=== PATIENT | male | born 1955 | race Caucasian/White ===

== ENCOUNTER 2017-05-31 16:29 | Emergency (ER) | payer OTHER ==
[~2017-05-31] VITALS: Ht 195.6 cm; Wt 102.1 kg
[~2017-05-31 16:29] MED LIST: ASPIRIN EC81 MG PO; ATENOLOL25 MG PO; LOSARTAN POTASS25 MG PO; LOVASTATIN20 MG PO; NORCO 10-325 T1 EACH PO
[2017-05-31] MEDS ORDERED: TOPROL XL50 MG PO (17:08)
[2017-06-18] MEDS ORDERED: DAILY MULTIPLE1 EACH PO (13:02)
== END 2017-05-31 17:27 | disposition home or self-care (01) ==
LOC: ED 16:29
DX: H43.391 Other vitreous opacities, right eye (principal); I10 Essential (primary) hypertension; F17.200 Nicotine dependence, unspecified, uncomplicated; Z79.899 Other long term (current) drug therapy
CPT/HCPCS: 99282

== ENCOUNTER 2018-04-08 16:49 | Emergency (ER) | payer OTHER ==
[~2018-04-08] VITALS: Ht 195.6 cm; Wt 102.1 kg
[~2018-04-08 16:49] MED LIST changes: +DAILY MULTIPLE1 EACH PO; +TOPROL XL50 MG PO
--- NOTE | 2018-04-09 20:59 | EKG ---
[facility] [address] [place] [address] Signed Normal sinus rhythm Inferior infarct , age undetermined Abnormal ECG No previous ECGs available Confirmed by DANIEL CRESPO MD ([id number]) on 04/09/2018 8:59:07 PM Electronically Signed By: DANIEL CRESPO MD 04/09/189 PATIENT NAME: DANIEL WOODS Electrocardiogram DATE OF : 53 PHYSICIAN: DANIEL CRESPO MD REPORT #: [id number] REPORT IS CONFIDENTIAL AND NOT TO BE RELEASED WITHOUT AUTHORIZATION
== END 2018-04-08 19:14 | disposition home or self-care (01) ==
LOC: ED 16:49
DX: I71.2 Thoracic aortic aneurysm, without rupture (principal); I10 Essential (primary) hypertension; Z79.899 Other long term (current) drug therapy
CPT/HCPCS: 71275; 80053; 84484; 85025; 85610; 93005; 93010; 99285; Q9967

== ENCOUNTER 2021-05-30 20:56 | Emergency (ER) | payer MEDICARE, OTHER ==
[~2021-05-30] VITALS: Ht 195.6 cm; Wt 102.1 kg
[2021-05-31] MEDS ORDERED: CLOPIDOGREL75 MG PO (00:16)
--- NOTE | 2021-06-01 18:59 | EKG ---
[facility] [address] [facility] [place] [address] Signed Sinus rhythm with 1st degree AV block with premature atrial complexes Low voltage QRS Borderline ECG When compared with ECG of 08-APR-2018 16:57, premature atrial complexes are now present Confirmed by DANIEL CRESPO MD ([id number]) on 06/01/2021 6:59:50 PM Electronically Signed By: DAINEL CRESPO MD 06/01/21 1859 PATIENT NAME: DANIEL WOODS Electrocardiogram DATE OF : 53 PHYSICIAN: DANIEL CRESPO MD REPORT #: [id number] REPORT IS CONFIDENTIAL AND NOT TO BE RELEASED WITHOUT AUTHORIZATION
== END 2021-05-31 00:30 | disposition home or self-care (01) ==
LOC: ED 20:56
DX: R20.2 Paresthesia of skin (principal); I10 Essential (primary) hypertension; Z87.891 Personal history of nicotine dependence; Z79.899 Other long term (current) drug therapy
CPT/HCPCS: 70450; 70496; 70498; 71045; 80053; 83735; 84484; 85025; 93005; 93010; 99284-25; Q9967

== ENCOUNTER 2024-02-18 15:52 | Emergency (ER) | payer MEDICARE, OTHER ==
[~2024-02-18] VITALS: Ht 195.6 cm; Wt 92.7 kg
[~2024-02-18 15:52] MED LIST changes: +CLOPIDOGREL75 MG PO
[2024-02-18] MEDS ORDERED: NITROGLYCERIN 0.4 MG SUBL SL PRN (16:00)
[2024-02-18] MEDS ORDERED: ASPIRIN 81 MG CHEW PO ONE (16:00)
[2024-02-18 16:06] LABS: BASOPHILS 0.9 % (0-2); EOSINOPHILS 1.1 % (0-6); HEMATOCRIT 44.2 % (35.0-50.0); HEMOGLOBIN 15.1 g/dL (12.0-18.0); LYMPHOCYTES 23.2 % (24-44); MCH 31.5 (27-36); MCHC 34.2 g/dl (30-36); MONOCYTES 12.4 % (0-12); NEUTROPHILS 62.4 % (39-80); PLATELET COUNT 213 K/uL (140-440); RDW 13.8 (10.5-15.0)
[2024-02-18 16:24] LABS: ALBUMIN 3.5 g/dL (3.4-5.0); ALBUMIN/GLOBULIN RATIO 1.06 (1.1-2.4); ANION GAP 10.4 (7-21); BILIRUBIN, TOTAL 1.1 ng/dL (0.2-1.0); BUN/CREATININE RATIO 20.83 (6.0-28.6); CALCIUM 8.9 mg/dL (8.5-10.1); CREATININE, SERUM 0.96 mg/dL (0.70-1.30); MAGNESIUM 2.1 mg/dL (1.8-2.4); POTASSIUM 4.4 mmol/L (3.5-5.1); PROTEIN, TOTAL 6.8 g/dL (6.4-8.2)
[2024-02-18 19:17] VITALS: BP 107/79
--- NOTE | 2024-02-19 14:04 | EKG ---
[facility] [address] [facility] [place] [address] Signed Sinus rhythm with 1st degree AV block Low voltage QRS Inferior infarct , age undetermined Cannot rule out Anterior infarct , age undetermined Abnormal ECG When compared with ECG of 30-MAY-2021 21:07, premature atrial complexes are no longer present Confirmed by Jimi Agudelo ([id number]) on 02/19/2024 2:04:40 PM Electronically Signed By: JIMI AGUDELO MD 02/19/24 1404 PATIENT NAME: DANIEL WOODS Electrocardiogram DATE OF : 53 PHYSICIAN: JIMI AGUDELO MD REPORT #: [id number] REPORT IS CONFIDENTIAL AND NOT TO BE RELEASED WITHOUT AUTHORIZATION
== END 2024-02-18 19:15 | disposition home or self-care (01) ==
LOC: ED 15:52
PROVIDERS: Emergency Medicine
DX: R07.81 Pleurodynia (principal); I10 Essential (primary) hypertension; Z87.891 Personal history of nicotine dependence; Z79.899 Other long term (current) drug therapy
CPT/HCPCS: 36415; 71045; 80053; 83735; 84484; 85025; 93005; 93010; 99285-25; A9270